=== PATIENT | male | born 1965 | race Caucasian/White ===

== ENCOUNTER 2017-10-29 09:35 | Emergency (ER) | payer OTHER ==
[2017-10-29 10:07] VITALS: BP 124/77; PULSE 86; TEMP 97.9; BMI 28.7
--- NOTE | 2017-10-29 11:20 | PDOC ---
History of Present Illness - General Chief Complaint: Injury Stated Complaint: RT LEG LACERATION/WOUND Time Seen by Provider: 10/29/17 11:06 - History of Present Illness Initial Comments: 10/29/17 11:55 The patient is a 52 year old male with no significant PMH who presents for evaluation of a laceration. The patient reports he sustained a laceration to the medial aspect of his right knee with a chanel while working earlier today just prior to presentation to the ED. He denies any decrease in ROM of the right knee and denies any numbness, tingling, or weakness in the extremity. Past History - Past Medical History Allergies/Adverse Reactions: Allergies Allergy/AdvReac Type Severity Reaction Status Date / Time No Known Allergies Allergy Verified 10/29/17 10:03 COPD: No DVT: No - Immunization History Immunization Up to Date: Yes - Suicide/Smoking/Psychosocial Hx Smoking History: Never smoked Have you smoked in the past 12 months: No Information on smoking cessation initiated: No Hx Alcohol Use: No Drug/Substance Use Hx: No Substance Use Type: None Review of Systems - Review of Systems Comments:: 10/29/17 11:59 Constitutional: No fevers, chills, fatigue, malaise HEENT: No Rhinorrhea, nasal congestion, visual changes Cardiovascular: No chest pain, syncope, palpitations, lightheadedness Respiratory: No Cough, SOB, Hemoptysis, Gastrointestinal: No Abdominal pain, Nausea, Vomiting, Constipation, Diarrhea, Melena Genitourinary: No Dysuria, Frequency, Urgency, Hesitancy, Hematuria, Flank pain Musculoskeletal: Laceration to the Right Knee. No Myalgia, arthralgia Skin: No rashes, itching, bruising, pallor Neurologic: No Headache, Dizziness, Numbness, Weakness, or Tingling Psychiatric: No Hallucinations. No SI or HI *Physical Exam - Vital Signs Last Vital Signs Temp Pulse Resp BP Pulse Ox 97.9 F 86 17 124/77 97 10/29/17 10:04 10/29/17 10:04 10/29/17 10:04 10/29/17 10:04 10/29/17 10:04 - Physical Exam Comments: 10/29/17 12:00 General Appearance: Nourished. No Apparent Distress HEENT: No Pharyngeal Erythema, Tonsillar Exudate, Tonsillar Erythema Neck: No Cervical Lymphadenopathy Respiratory/Chest: Lungs Clear, Normal Breath Sounds. No Crackles, Rales, Rhonchi, Wheezing Cardiovascular: Regular Rhythm, Regular Rate. No Murmur, Gallops, Rubs Gastrointestinal/Abdominal: Normal Bowel Sounds, Soft. No Guarding, Rebound, Tenderness Musculoskeletal: No CVA Tenderness Extremity: 6 cm Laceration to the medial aspect of the right knee without exposed nerve or tendon or deep tissue. Normal ROM of the right knee. Sensation to light touch and temperature intact in the distal extremity. 2+ DP pulses bilaterally. 5/5 strength in the distal extremity. Normal Capillary Refill Integumentary: Normal Color, Dry, Warm Neurologic: Fully Oriented, Alert, Normal Mood/Affect, Normal Response, Procedures - Laceration/Wound Repair Right Medial Knee Wound Length: 5.0 to 7.5 cm Wound Explored: clean, no foreign body present Wound's Depth, Shape: superficial, linear Irrigated w/ Saline: Yes Anesthesia: 1% Lidocaine Amount of Anesthetic (ccs): 5 Wound Repaired With: Sutures Suture Size/Type: 4:0, nylon Number of Sutures: 7 Layer Closure: Yes Sterile Dressing Applied: Yes Medical Decision Making - Medical Decision Making 10/29/17 12:03 The patient is a 52 year old male with no significant PMH who presents for evaluation of a laceration. Given the patient's physical exam, it appears the laceration is superficial in nature with some deep dermis involvement and does not involve any tendon or nerve damage. The laceration was repaired with 7 4-0 nylon sutures with successful layer closure. We discussed proper wound care with the patient as well as the need to return in 7-10 days to have the sutures removed. We will update the patient's tetanus status here in the ED as well. We are comfortable discharging the patient home at this time with follow up in the ED. The patient voiced understanding and is agreeable with the plan. *DC/Admit/Observation/Transfer Diagnosis at time of Disposition: Laceration - Discharge Dispostion Disposition: HOME Condition at time of disposition: Good Admit: No - Referrals - Patient Instructions Printed Discharge Instructions: DI for Laceration Repair Additional Instructions: Please return to the ER if you experience concerning or worsening symptoms including fevers, chills, redness to the wound, pus drainage. Your laceration was repaired with 7 sutures. You will need to return in 10 days to have the sutures inspected and removed. Please keep the wound dry for 24 hours after which you may lightly cleanse the wound with soap and water. You may use a light layer of bacitracin for 3-5 days twice a day. Please return to the ER in 10 days to have your sutures removed. - Post Discharge Activity
[2017-10-29] MEDS ORDERED: DIPHTH,PERTUSS(ACELL),TET 0.5 ML DISP.SYRIN IM ONE (11:54)
--- NOTE | 2017-10-29 12:16 | PDOC ---
Attending Attestation - Resident Resident Name: JoannWaqar - ED Attending Attestation I have performed the following: I have examined & evaluated the patient, The case was reviewed & discussed with the resident, I agree w/resident's findings & plan, Exceptions are as noted - HPI HPI: 10/29/17 12:14 52-year-old male with linear laceration to the medial aspect of his right knee while using a power tool. No motor or sensory deficit, unknown last tetanus. No other injuries. - Physicial Exam PE: 10/29/17 12:15 VSS linear vertical laceration to medial aspect R knee, deep to dermis without foreign body or deep tissue exposure no joint involvement, FROM, nvi - Medical Decision Making 10/29/17 12:15 Patient seen and evaluated with the resident. I agree with the overall evaluation, assessment, and management with the following summary of visit: 52-year-old male with linear right lower extremity laceration. Neurovascularly intact without deep tissue injury or involvement. Update tetanus Copious irrigation Laceration repair as per resident note, when care as instructed
== END 2017-10-29 12:44 | disposition home or self-care (01) ==
LOC: JER 09:35 → JERFT 09:35 → JER 12:44
PROC: 0HQKXZZ Repair Right Lower Leg Skin, External Approach (ICD-10-PCS; principal; 2017-10-29)
PROC: 3E0234Z Introduction of Serum, Toxoid and Vaccine into Muscle, Percutaneous Approach (ICD-10-PCS; 2017-10-29)
DX: S81.011A Laceration without foreign body, right knee, initial encounter (principal); W29.8XXA Contact with other powered hand tools and household machinery, initial encounter; Y93.89 Activity, other specified; Y92.9 Unspecified place or not applicable
CPT/HCPCS: 90715; 99281-25